=== PATIENT | female | born 1980 | race Native Hawaiian/Other Pacific Islander ===

== ENCOUNTER 2018-06-14 06:23 | Emergency (ER) | payer OTHER ==
[~2018-06-14] VITALS: Ht 170.2 cm; Wt 133.8 kg
[~2018-06-14 06:23] MED LIST: ALAVERT10 M2 PO; CYCL10TA35 PO; FOLIC OR; HYZAAR1 TA1 PO; LEVOTHROID50 MCG OR; MAGNEBIND400 MG PO; MELOXICAM15 MG PO; PRED10TA27 PO; TIROSINT50 MCG PO; VIT E OR; VITAMIN D5000 UNIT PO
[2018-06-14 07:21] LABS: PLATELET COUNT 347 K/uL (152-353)
[2018-06-14 11:00] VITALS: BP 128/70; TEMP 98
== END 2018-06-14 11:16 | disposition home or self-care (01) ==
LOC: ED 06:23
DX: K29.70 Gastritis, unspecified, without bleeding (principal); R10.11 Right upper quadrant pain
CPT/HCPCS: 36415; 80053; 81000; 85027; 96374; 96375; 99284; J1885; J2405; Q9963

== ENCOUNTER 2018-07-01 07:19 | Outpatient (CLI) | payer OTHER | END 2018-07-01 22:36 | disposition home or self-care (01) | LOC: LABW 07:19 | DX: R10.11 Right upper quadrant pain (principal) | CPT/HCPCS: 36415; 82150; 83690; 86677 ==

== ENCOUNTER 2018-07-02 08:51 | Outpatient (CLI) | payer OTHER | END 2018-07-02 19:16 | disposition home or self-care (01) | LOC: US 08:51 | DX: R10.11 Right upper quadrant pain (principal); R11.0 Nausea ==

== ENCOUNTER 2018-10-02 07:53 | Outpatient (CLI) | payer OTHER | END 2018-10-02 21:33 | disposition home or self-care (01) | LOC: NM 07:53 | DX: R10.11 Right upper quadrant pain (principal) | CPT/HCPCS: A9537 ==

== ENCOUNTER 2019-03-09 09:09 | Outpatient (CLI) | payer OTHER ==
[2019-03-09 09:59] LABS: PLATELET COUNT 272 K/uL (152-353)
[2019-03-09 10:18] LABS: POTASSIUM 4.1 mmol/L (3.6-5.2)
== END 2019-03-09 23:21 | disposition home or self-care (01) ==
LOC: LABW 09:09
PROVIDERS: Physician Assistant
DX: M25.50 Pain in unspecified joint (principal); E83.42 Hypomagnesemia; M12.9 Arthropathy, unspecified; W57.XXXA Bitten or stung by nonvenomous insect and other nonvenomous arthropods, initial encounter; E03.9 Hypothyroidism, unspecified
CPT/HCPCS: 36415; 80053; 83735; 84443; 85027; 85651; 86038; 86431; 86618

== ENCOUNTER 2019-03-25 00:28 | Emergency (ER) | payer OTHER ==
[~2019-03-25] VITALS: Ht 170.2 cm; Wt 129.3 kg
[~2019-03-25 00:28] MED LIST changes: -MELOXICAM15 MG PO; +MOBIC15 MG PO
[2019-03-25] MEDS ORDERED: VITAMIN D3400 UNIT PO (00:55)
[2019-03-25 03:05] VITALS: BP 145/88; TEMP 97.5
== END 2019-03-25 03:05 | disposition home or self-care (01) ==
LOC: ED 00:28
DX: S93.401A Sprain of unspecified ligament of right ankle, initial encounter (principal); M25.571 Pain in right ankle and joints of right foot; M25.471 Effusion, right ankle; W01.0XXA Fall on same level from slipping, tripping and stumbling without subsequent striking against object, initial encounter
CPT/HCPCS: 99283

== ENCOUNTER 2019-07-10 11:06 | Outpatient (CLI) | payer OTHER ==
[~2019-07-10 11:06] MED LIST changes: +VITAMIN D3400 UNIT PO
== END 2019-07-10 21:57 | disposition home or self-care (01) ==
LOC: RAD 11:06
DX: M25.571 Pain in right ankle and joints of right foot (principal); M79.671 Pain in right foot

== ENCOUNTER 2020-05-30 10:06 | Outpatient (CLI) | payer OTHER | END 2020-05-30 19:16 | disposition home or self-care (01) | LOC: LAB 10:06 | DX: Z11.59 Encounter for screening for other viral diseases (principal); J40 Bronchitis, not specified as acute or chronic | CPT/HCPCS: 87502; 87635; G2023; U0003 ==

== ENCOUNTER 2020-10-06 14:18 | Outpatient (CLI) | payer OTHER | END 2020-10-06 20:48 | disposition home or self-care (01) | LOC: LAB 14:18 | PROVIDERS: ATTEND Internal Medicine | DX: R05 Cough (principal); Z11.59 Encounter for screening for other viral diseases | CPT/HCPCS: 87635; G2023; U0003 ==

== ENCOUNTER 2020-11-01 09:14 | Emergency (ER) | payer OTHER ==
[~2020-11-01] VITALS: Ht 167.6 cm; Wt 136.5 kg
[2020-11-01 10:28] LABS: PLATELET COUNT 249 K/uL (152-353)
[2020-11-01 10:37] LABS: POTASSIUM 3.9 mmol/L (3.6-5.2); SODIUM 137 mmol/L (136-145)
[2020-11-01 12:04] VITALS: BP 156/99; TEMP 97.1
== END 2020-11-01 12:04 | disposition home or self-care (01) ==
LOC: ED 09:14
PROVIDERS: Family Medicine
DX: J18.9 Pneumonia, unspecified organism (principal); R09.02 Hypoxemia; I50.9 Heart failure, unspecified
CPT/HCPCS: 80053; 81000; 84484; 85027; 93005; 99284

== ENCOUNTER 2020-11-04 20:42 | Emergency (ER) | payer OTHER ==
[~2020-11-04] VITALS: Ht 167.6 cm; Wt 137.0 kg
[2020-11-04 20:49] VITALS: TEMP 98
[2020-11-04 22:49] VITALS: BP 107/52
== END 2020-11-04 22:50 | disposition home or self-care (01) ==
LOC: ED 20:42
DX: F41.8 Other specified anxiety disorders (principal); I10 Essential (primary) hypertension
CPT/HCPCS: 99282

== ENCOUNTER 2020-11-07 06:59 | Outpatient (CLI) | payer OTHER | END 2020-11-07 19:17 | disposition home or self-care (01) | LOC: LABW 06:59 | PROVIDERS: ATTEND Internal Medicine | DX: I10 Essential (primary) hypertension (principal) | CPT/HCPCS: 36415; 80061; 84439; 84443 ==

== ENCOUNTER 2021-09-04 09:06 | Outpatient (CLI) | payer OTHER | END 2021-09-04 18:59 | disposition home or self-care (01) | LOC: RESP 09:06 | PROVIDERS: ATTEND Family Medicine | DX: R07.9 Chest pain, unspecified (principal) ==

== ENCOUNTER 2021-09-13 08:11 | Outpatient (CLI) | payer OTHER | END 2021-09-13 21:17 | disposition home or self-care (01) | LOC: NM 08:11 | PROVIDERS: ATTEND Family Medicine | DX: R07.9 Chest pain, unspecified (principal) | CPT/HCPCS: A9500 ==

== ENCOUNTER 2021-10-18 08:56 | Outpatient (CLI) | payer OTHER | END 2021-10-18 19:34 | disposition home or self-care (01) | LOC: RAD 08:56 | PROVIDERS: ATTEND Family Medicine | DX: E04.1 Nontoxic single thyroid nodule (principal) ==

== ENCOUNTER 2022-01-08 08:41 | Outpatient (CLI) | payer OTHER | END 2022-01-08 20:44 | disposition home or self-care (01) | LOC: US 08:41 | PROVIDERS: ATTEND Nurse Practitioner Primary Care | DX: R60.0 Localized edema (principal) ==

== ENCOUNTER 2023-05-24 13:21 | Emergency (ER) | payer OTHER ==
[~2023-05-24] VITALS: Ht 167.6 cm; Wt 167.8 kg
[2023-05-24 16:25] VITALS: BP 150/71; TEMP 97.9
== END 2023-05-24 16:25 | disposition home or self-care (01) ==
LOC: ED 13:21
DX: S43.402A Unspecified sprain of left shoulder joint, initial encounter (principal); W19.XXXA Unspecified fall, initial encounter; Y93.89 Activity, other specified; Y92.9 Unspecified place or not applicable; Y99.9 Unspecified external cause status; S63.502A Unspecified sprain of left wrist, initial encounter; I10 Essential (primary) hypertension; E78.5 Hyperlipidemia, unspecified; E07.9 Disorder of thyroid, unspecified
CPT/HCPCS: 99283